=== PATIENT | male | born 1995 | race Caucasian/White ===

== ENCOUNTER 2016-04-15 20:31 | Emergency (ER) | payer OTHER ==
[~2016-04-15] VITALS: Ht 177.8 cm; Wt 64.9 kg
[2016-04-15 20:35] VITALS: BP 140/32
== END 2016-04-15 22:01 | disposition left against medical advice (07) ==
LOC: ER 20:31 → EDBD 20:31 → ER 22:01
DX: R51 Headache (principal); M54.2 Cervicalgia; Z53.21 Procedure and treatment not carried out due to patient leaving prior to being seen by health care provider; V43.32XA Unspecified car occupant injured in collision with other type car in nontraffic accident, initial encounter; Y93.89 Activity, other specified; Y92.89 Other specified places as the place of occurrence of the external cause; Y99.8 Other external cause status